=== PATIENT | female | born 1960 | race Caucasian/White ===

== ENCOUNTER 2016-06-26 14:44 | Emergency (ER) | payer MEDICAID ==
--- NOTE | 2016-07-02 08:39 | ER ---
ADMIT: 06/26/2016 RM/LOC: ER [facility] MR#: [id number] [address] [id number] [address] [address] Emergency Room Report SEX: F AGE: 55 : 1960 DATE: 06/26/2016 CHIEF COMPLAINT: Fall, right elbow pain. HISTORY OF PRESENT ILLNESS: A pleasant, 55-year-old, white female, who presents after a fall at home two weeks ago. The patient states she was on a ladder when she fell from about 6 steps on an outstretched right hand. She states she has been using Tylenol, ibuprofen [id number] for pain without improvement. Rates her pain as an 8/10. She denies any head injury, loss of consciousness. No neck pain, shortness of breath, vomiting, or problems with vision. PAST MEDICAL HISTORY: Anxiety and insomnia. COURSE IN THE EMERGENCY ROOM: The patient was seen and examined. Significant for some acute bony tenderness on the lateral aspect of the right elbow. She does have full range of motion, however limited secondary to pain. No obvious deformity. No ecchymosis. Distal pulses are intact. Neurovascularly intact as well. Did get routine series of the right elbow. No evidence of any acute fractures. She does have some degenerative changes. IMPRESSION: Right lateral elbow contusion. DISPOSITION: The patient will be started on naproxen 500 mg p.o. b.i.d. for 5 days. She is to take the medicine with food. Continue gentle range of motion and stretching. Apply ice or heat as needed to her preference. Continue all her home medications. Follow up with her primary care provider if she is not improving. Questions were sought and answered to the best of my ability and to the patient's satisfaction. Discharged in stable condition. ISAAC Olivas / Amandeep Singh MD / mike JOB #: [id number] CC: Sudeep Loco MD, Attending Physician
== END 2016-06-26 15:56 | disposition home or self-care (01) ==
LOC: ER 14:44
DX: S50.01XA Contusion of right elbow, initial encounter (principal); F41.9 Anxiety disorder, unspecified; I50.9 Heart failure, unspecified; F17.210 Nicotine dependence, cigarettes, uncomplicated; Z79.899 Other long term (current) drug therapy; W11.XXXA Fall on and from ladder, initial encounter; Y92.009 Unspecified place in unspecified non-institutional (private) residence as the place of occurrence of the external cause